=== PATIENT | male | born 1980 ===

== ENCOUNTER 2016-12-07 20:49 | Emergency (ER) | payer SELFPAY ==
--- NOTE | ~2016-12-07 | ER ---
PATIENT'S NAME: BEN STOREY [facility] AGE: 36 Y [address] ROOM: [place] [address] LOCATION: [facility] ADMIT DATE: 12/07/2016 ER/Outpatient Report DISCHARGE DATE: 12/07/2016 FAMILY PHYSICIAN: PHYSICIAN, NO ATTENDING PHYSICIAN: Alphonso Gonzales TIME OF ARRIVAL: 2100 hours. TIME OF EXAM: 2100 hours. CHIEF COMPLAINT: Tooth pain. HISTORY OF PRESENT ILLNESS: The patient states last night he began having pain in his left upper tooth on his 1st molar. It began hurting today and the pain has increased tremendously. He did talk to [facility] dentistry and they cannot see him before next Tuesday. He did try calling other offices here in town, but nobody is able to get him in today. He states he cannot tolerate the pain anymore. ALLERGIES: HE HAS NO KNOWN ALLERGIES. MEDICATIONS: No current medications. PAST MEDICAL HISTORY: Benign. PAST SURGERIES: Negative. SOCIAL HISTORY: Smokes approximately 5 cigarettes per day. Denies use of tobacco, drugs, or alcohol. REVIEW OF SYSTEMS: All negative other than those mentioned in the HPI. PHYSICAL EXAMINATION: VITAL SIGNS: He weighed 77.9 kg. Blood pressure is 147/95, pulse is 67, respirations 16, temp of 97.3, tympanic, and O2 sat was 99% on room air. GENERAL: He is awake, alert, and oriented x4. PATIENT'S NAME: BEN STOREY [facility] AGE: 36 Y [address] ROOM: [place] [address] LOCATION: [facility] ADMIT DATE: 12/07/2016 ER/Outpatient Report DISCHARGE DATE: 12/07/2016 FAMILY PHYSICIAN: PHYSICIAN, NO ATTENDING PHYSICIAN: Alphonso Gonzales SKIN: [place], warm, and dry. RESPIRATIONS: Even and nonlabored. HEENT: The patient has a left upper cuspid tooth that is cracked and at various stages of decay. The gum around the area is reddened and swollen. He is very tender to touch in that area. IMPRESSION: Infected tooth. PLAN: Home, rest, and fluids. Prescription was written for amoxicillin antibiotic and Jenkinjones for pain. If symptoms persist or worsen, he is to contact the dental office. He verbalized understanding. DALIA TEE DO DJ/maty /[id number] d: 12/08/16 0049 t: 12/09/161956, OUTPATIENT REPORT
== END 2016-12-07 21:09 | disposition disaster alternative care site (69) ==
LOC: GMED 20:49
DX: K04.7 Periapical abscess without sinus (principal); K03.81 Cracked tooth; K02.9 Dental caries, unspecified; F17.210 Nicotine dependence, cigarettes, uncomplicated